=== PATIENT | male | born 1980 | race Caucasian/White ===

== ENCOUNTER 2018-07-06 16:08 | Emergency (ER) | payer SELFPAY ==
[~2018-07-06] VITALS: Ht 182.9 cm; Wt 88.5 kg
[2018-07-06 16:42] VITALS: BP 169/98
[2018-07-06] MEDS ORDERED: ACETAMINOPHEN 325 MG TAB PO ONE (17:30)
== END 2018-07-06 17:45 | disposition home or self-care (01) ==
LOC: ER 16:17
DX: S00.03XA Contusion of scalp, initial encounter (principal); W22.8XXA Striking against or struck by other objects, initial encounter; Y93.89 Activity, other specified; Y99.8 Other external cause status; Y92.89 Other specified places as the place of occurrence of the external cause
CPT/HCPCS: 70450